=== PATIENT | male | born 1960 | race Caucasian/White ===

== ENCOUNTER 2016-04-24 13:12 | Outpatient (RCR) | payer MEDICAID ==
--- OUTSIDE RECORDS SUMMARY | 2016-04-10 14:59 | XMS REPORT | Continuity of Care Document ---
Author Author [facility] Organization [facility] Address Unknown Phone Unavailable Care Team Providers Care Cyber Software Engineer Name Role Phone Jm Jaramillo PCP [phone] Source Comments Some departments are not documenting in the electronic medical record. If you do not see the information that you expected, contact Release of Information in the Health Information Management department at [phone] for further assistance in locating additional records.[facility] Active Allergies and Adverse Reactions No Known Allergies Current Medications Prescription Sig. Disp. Refills Start End Date Status Date lamoTRIgine (LAMICTAL) 150 mg by Per G Tube Active 150 mg tablet route twice daily. carBAMazepine (TEGRETOL) Take 2.5 tabs per tube Active 200 mg tablet each morning, 2 tabs each afternoon, and 2.5 tabs at bedtime. ALPRAZolam (XANAX) 1 mg Take 1 mg by mouth three Active tablet times daily as needed. antiseptic mucus solvent 6 mL by Tracheal Tube 120 mL 6 11/01/19 Active 120 mL route every 1 hour as 15 needed (thick mucous/secretions). HYDROcodone/acetaminophen Take 1-2 Tabs via feeding 30 Tab 0 11/01/19 Active (NORCO; VICODIN) 5-325 mg tube every 6 hours as 15 tablet needed for Pain docusate (COLACE) 50 mg/5 10 mL twice daily. 473 mL 1 11/01/19 Active mL oral solution 15 fluticasone (FLONASE) 50 Apply 2 Sprays to each 3 Inhaler 3 06/08/19 Active mcg/actuation nasal spray nostril as directed 16 daily. 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 Unable to recline for scans. 09/20/14 - awake trach with panendoscopy Findings=Friable lesion involving the laryngeal surface of the epiglottis, the left AE fold and left true cord. This extends inferiorly into the left infraglottis. There is abnormal mucosa extending across the interarytenoid area and involving the right arytenoid. 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 PET - pending Immunizations Name Dates Previously Given Next Due Pneumococcal Vaccine 09/25/2014 (23-[place] Adult) Social History Tobacco Use Types Packs/Day Years Used Date Former Smoker Cigarettes 0.25 30 Quit: 09/13/2014 Smokeless Tobacco: Never Used Alcohol Use Drinks/Week oz/Week Comments No 0 Standard 0.0 drinks or equivalent Last Filed Vital Signs Vital Sign Reading Time Taken Blood Pressure 125/74 10/26/2015 11:45 AM CDT Pulse 66 10/26/2015 11:45 AM CDT Temperature 36.7 C (98.1 F) 10/31/2014 6:33 AM CDT Respiratory Rate - - Height 1.778 m (5' 10") 10/26/2015 11:45 AM CDT Weight 84.55 kg (186 lb 6.4 oz) 10/26/2015 11:45 AM CDT Body Mass Index 26.75 10/26/2015 11:45 AM CDT Oxygen Saturation 99% 10/31/2014 6:33 AM CDT Plan of Care Date Type Specialty Providers Description 04/17/2016 Appointment Otolaryngology Nanci Mack MD [address] [facility] [address] [place] [address] [phone] (Fax) Health Maintenance Due Date Last Done Comments Hepatitis C Screening 1961 Physical (Comprehensive) 1968 Exam Pertussis Vaccine 1972 Tetanus Vaccine 1978 Colorectal Cancer 2011 Screening Influenza Vaccine 11/15/2015 Results from Last 3 Months Not on file
[2016-04-10 16:16] LABS: BASOPHILS % (AUTO) 0 % (0-10); EOSINOPHILS % (AUTO) 0 % (0-10); LYMPHOCYTES # (AUTO) 1.4 X 10^3 (1.0-4.0); LYMPHOCYTES % (AUTO) 24 % (12-44); MEAN CORPUSCULAR HEMOGLOBIN 32 PG (25-34); MEAN CORPUSCULAR HGB CONC 35 G/DL (32-36); MEAN CORPUSCULAR VOLUME 91 FL (80-99); MEAN PLATELET VOLUME 10.7 FL (7.4-10.4); MONOCYTES # (AUTO) 0.7 X 10^3 (0.0-1.0); MONOCYTES % (AUTO) 12 % (0-12); NEUTROPHILS # (AUTO) 3.9 X 10^3 (1.8-7.8); NEUTROPHILS % (AUTO) 64 % (42-75); PLATELET COUNT 158 10^3/uL (130-400); RED BLOOD COUNT 4.61 10^6/uL (4.35-5.85)
[2016-04-10 17:03] LABS: ALANINE AMINOTRANSFERASE 17 U/L (0-55); ANION GAP 8 MMOL/L (5-14); ASPARTATE AMINO TRANSFERASE 14 U/L (5-34); BILIRUBIN,TOTAL 0.2 MG/DL (0.1-1.0); BLOOD UREA NITROGEN 10 MG/DL (7-18); BUN/CREATININE RATIO 10; CALCIUM 8.7 MG/DL (8.5-10.1); CARBON DIOXIDE 22 MMOL/L (21-32); CHLORIDE 109 MMOL/L (98-107); CREATININE SERUM 0.99 MG/DL (0.60-1.30); GFR ESTIMATED > 60; GLUCOSE 106 MG/DL (70-105); POTASSIUM 4.2 MMOL/L (3.6-5.0); SODIUM 139 MMOL/L (135-145); TOTAL PROTEIN 6.7 G/DL (6.4-8.2)
[2016-04-10 17:25] LABS: THYROID STIMULATING HORMONE 10.33 UIU/ML (0.35-4.94)
[~2016-04-24 13:12] MED LIST: ALPR1TAB2 PO; CARB200T PO; DOCU-143 PO; FAMO-119 PO; HYDR-3812 PO; LAMO150T3 PO; LEVO50TA PO
[2016-06-24] MEDS ORDERED: CARB200T PO (10:03)
[2016-06-24] MEDS ORDERED: LEVO100T7 PO (10:03)
[2016-06-24] MEDS ORDERED: LORA10TA76 PO (10:03)
== END 2016-07-09 | disposition home or self-care (01) ==
LOC: PAR 13:12
PROVIDERS: ATTEND Internal Medicine Hematology & Oncology
DX: C32.0 Malignant neoplasm of glottis (principal); R91.8 Other nonspecific abnormal finding of lung field; G40.909 Epilepsy, unspecified, not intractable, without status epilepticus; Z93.0 Tracheostomy status; Z93.1 Gastrostomy status; Z79.899 Other long term (current) drug therapy
CPT/HCPCS: 36591; 80053; 84443; 85025; 99213

== ENCOUNTER 2016-06-24 09:44 | Outpatient (CLI) | payer MEDICAID ==
[~2016-06-24] VITALS: Ht 177.8 cm; Wt 85.3 kg
[2016-06-24] MEDS ORDERED: CARB200T PO (10:03)
[2016-06-24] MEDS ORDERED: LEVO100T7 PO (10:03)
[2016-06-24] MEDS ORDERED: LORA10TA76 PO (10:03)
== END 2016-06-24 10:45 ==
LOC: PREOP 09:44
PROVIDERS: ATTEND Surgery
DX: Z01.818 Encounter for other preprocedural examination (principal); C32.0 Malignant neoplasm of glottis

== ENCOUNTER 2016-06-26 06:45 | Day surgery (SDC) | payer MEDICAID ==
[~2016-06-26] VITALS: Ht 177.8 cm; Wt 85.3 kg
[~2016-06-26 06:45] MED LIST changes: +LEVO100T7 PO; +LORA10TA76 PO
[2016-06-26] MEDS ORDERED: LACTATED RINGERS 1,000 ML IV PRN (07:06)
[2016-06-26] MEDS ORDERED: MIDAZOLAM 2 MG/2 ML (VERSED) VIAL ONE (07:13)
[2016-06-26] MEDS ORDERED: PROPOFOL INJECTION 50 ML IV ONE (07:13)
[2016-06-26] MEDS ORDERED: fentaNYL INJECTION 100 MCG/2 ML AMP ONE (07:13)
[2016-06-26] MEDS ORDERED: BUPIVACAINE 0.5% 30 ML (SENSORCAINE) VIAL ONE (07:14)
[2016-06-26] MEDS ORDERED: LIDOCAINE 1% INJ 20 ML (XYLOCAINE) VIAL ONE (07:27)
[2016-06-26] MEDS ORDERED: LIDOCAINE/EPI 1%-1:100,000 (XYLOCAINE) 20ML ONE (07:28)
[2016-06-26 07:30] VITALS: BP 117/78
[2016-06-26] MEDS ORDERED: ceFAZolin 2 GM/NS 50 ML IV ONE (07:30)
[2016-06-26] MEDS ORDERED: CATHETER FLUSH 10 ML SYR IV PRN (07:30)
--- NOTE | 2016-06-26 07:42 | Progress Note-Pre Operative ---
Pre-Operative Progress Note H&P Reviewed The H&P was reviewed, patient examined and no changes noted. Date H&P Reviewed: Jun 26, 2016 Time H&P Reviewed: 07:42 Pre-Operative Diagnosis: history layrngeal cancer ALYSA DUTTA DO Jun 26, 2016 7:42 am
[2016-06-26] MEDS ORDERED: ONDANSETRON 4 MG/2 ML (SDV) Z0FRAN IVP PRN (09:00)
[2016-06-26] MEDS ORDERED: morphine INJ 10 MG/ML 1ML (SYR OR VIAL) IVP PRN (09:00)
--- NOTE | 2016-06-26 09:10 | Discharge Inst-Simple/Standard ---
Discharge Inst-Standard Patient Instructions/Follow Up Plan of Care/Instructions/FU: Follow up with Dr. Mario in 2 weeks Keep ice on incision for 15 mins on and 15 mins off for the next 48 hours Activity as Tolerated: No Discharge Diet: No Restrictions Other Inst to Patient Follow up Appt: Make appointment for 2 weeks. Instructions: No lifting greater than 10 pounds. No strenuous activity. May shower in 24 hours, no tub bath or soaking. Use incentive spirometer at home as directed. No Smoking Skin/Wound Care: May remove bandages. Keep ice on incision for 15 mins on and 15 off for the next 48 hours. Glue will fall off. Do not peel off. Symptoms to Report: Appetite Changes, Extremity Discoloration, Numbness/Tingling, Swelling Increased , Bleeding Excessive, Eyesight Changes, Pain Increased, Urine Color Change, Constipation(Persistent), Fever over 101 degree F, Pain/Pressure in chest, Urinating Difficulty, Cough Up/Vomit Blood, Heart Beat Irreg/Pounding, Pain/ Pressure in jaw, Vaginal Bleeding Increase, Cramps in feet or legs, Lightheadedness, Pain/Pressure in shoulder, Diarrhea(Persistent), Memory Changes Suddenly, Questions/Concerns, Weight gain consecutive days, Dizziness/ Fainting, Nausea/Vomiting, Shortness of Breath, Weight gain over 2 pounds If questions or concerns contact your physician Or seek help at emergency department. JIM ARGUETA APRN Jun 26, 2016 09:10
[2016-06-26] MEDS ORDERED: LACTATED RINGERS 1,000 ML IV ONE (09:16)
--- NOTE | 2016-06-26 09:22 | Progress Note-Post Operative ---
Post-Operative Progess Note Surgeon (s)/Tennis Player (s) Surgeon ALYSA DUTTA DO Tennis Player: 0 Pre-Operative Diagnosis history layrngeal cancer Post-Operative Diagnosis same Post-Op Procedure Note Date of Procedure: Jun 26, 2016 Name of Procedure Performed: port removal Description of the Procedure: see note Findings of the Procedure see note Anesthesia Type mac c local Estimated blood loss (mL): minimal Specimen(s) collected/removed none ALYSA DUTTA DO Jun 26, 2016 9:22 am
[2016-06-26 09:27] VITALS: BP 105/71
[2016-06-26 09:57] VITALS: BP 112/71
[2016-06-26 10:27] VITALS: BP 121/81
--- NOTE | 2016-06-26 15:18 | OPERATIVE REPORT ---
DATE OF SERVICE: 06/26/2016 PREOPERATIVE DIAGNOSIS: History of laryngeal cancer. POSTOPERATIVE DIAGNOSIS: History of laryngeal cancer. PROCEDURE: Port removal. SURGEON: ALYSA DUTTA DO ANESTHESIA: MAC with local. ESTIMATED BLOOD LOSS: Minimal. COMPLICATIONS: None. INDICATIONS: The patient is a 56-year-old male with history of laryngeal cancer. He has been cleared to have port removed. He understands the risks and benefits of the procedure and wished to proceed with the procedure. Consent is on the chart. DESCRIPTION OF PROCEDURE: The patient was taken to the operating suite, was prepped and draped in sterile fashion. Surgical pause was performed. Local anesthesia of 0.5% Marcaine and 1% lidocaine 50-50 ratio was used to anesthetize the area. A 15 blade scalpel was used to make an incision over the existing scar, cautery was used to dissect down through the subcutaneous tissue until the port was encounter. Port was then grasped, fibrosed tissue around it was cut with cautery and port was removed in its entirety. The wound was then irrigated with copious amounts of irrigation. The subcutaneous tissues were then reapproximated using 3-0 Vicryl. Skin was then closed using Dermabond after the area was washed and dried. The patient tolerated the procedure well without any complications and was taken to the recovery room in stable condition. Job ID: [id number] DocumentID: [id number] Dictated Date: 06/26/2016 13:58:54 Pipeline Operator Date: 06/26/2016 15:01:11 Dictated By: ALYSA DUTTA DO
== END 2016-06-26 10:35 | disposition home or self-care (01) ==
LOC: SDC 06:45
PROVIDERS: ATTEND Surgery
DX: Z08 Encounter for follow-up examination after completed treatment for malignant neoplasm (principal); Z85.21 Personal history of malignant neoplasm of larynx
CPT/HCPCS: 87081

== ENCOUNTER 2017-03-26 14:37 | Outpatient (RCR) | payer MEDICARE, MEDICAID ==
[~2017-03-26 14:37] MED LIST changes: +ACHD5005 PO; -HYDR-3812 PO
[2017-03-26 14:59] LABS: BASOPHILS % (AUTO) 1 % (0-10); EOSINOPHILS % (AUTO) 0 % (0-10); HEMATOCRIT 44 % (40-54); HEMOGLOBIN 15.9 G/DL (13.3-17.7); LYMPHOCYTES # (AUTO) 1.9 X 10^3 (1.0-4.0); LYMPHOCYTES % (AUTO) 35 % (12-44); MEAN CORPUSCULAR HEMOGLOBIN 33 PG (25-34); MEAN CORPUSCULAR HGB CONC 36 G/DL (32-36); MEAN CORPUSCULAR VOLUME 90 FL (80-99); MEAN PLATELET VOLUME 8.6 FL (7.4-10.4); MONOCYTES # (AUTO) 0.6 X 10^3 (0.0-1.0); MONOCYTES % (AUTO) 12 % (0-12); NEUTROPHILS # (AUTO) 2.9 X 10^3 (1.8-7.8); NEUTROPHILS % (AUTO) 53 % (42-75); PLATELET COUNT 211 10^3/uL (130-400); RED BLOOD COUNT 4.89 10^6/uL (4.35-5.85); RED CELL DISTRIBUTION WIDTH 12.7 % (10.0-14.5); WHITE BLOOD COUNT 5.4 10^3/uL (4.3-11.0)
[2017-03-26 15:17] LABS: ALANINE AMINOTRANSFERASE 15 U/L (0-55); ALKALINE PHOSPHATASE 73 U/L (40-136); BILIRUBIN,TOTAL 0.3 MG/DL (0.1-1.0); BUN/CREATININE RATIO 8; CALCIUM 9.1 MG/DL (8.5-10.1); CARBON DIOXIDE 23 MMOL/L (21-32); CHLORIDE 108 MMOL/L (98-107); CREATININE SERUM 1.07 MG/DL (0.60-1.30); GFR ESTIMATED > 60; GLUCOSE 123 MG/DL (70-105); POTASSIUM 3.9 MMOL/L (3.6-5.0); SODIUM 139 MMOL/L (135-145)
== END 2017-06-24 | disposition home or self-care (01) ==
LOC: ONC 14:37
PROVIDERS: ATTEND Internal Medicine Hematology & Oncology
DX: C32.0 Malignant neoplasm of glottis (principal); R91.8 Other nonspecific abnormal finding of lung field; G40.909 Epilepsy, unspecified, not intractable, without status epilepticus; Z93.0 Tracheostomy status; Z93.1 Gastrostomy status; Z79.899 Other long term (current) drug therapy
CPT/HCPCS: 36415; 80053; 84443; 85025; 99213